=== PATIENT | female | born 1945 | race Caucasian/White ===

== ENCOUNTER → 2023-04-19 10:10 | Outpatient (REF) | payer OTHER, SELFPAY ==
[2023-04-19 12:23] LABS: ALT (SGPT) 17 U/L (0-35); AST (SGOT) 24 U/L (14-36); Albumin 3.7 g/dl (3.5-5.0); Alkaline Phosphatase 85 U/L (38-126); Blood Urea Nitrogen 22 mg/dl (7-17); Calcium 9.5 mg/dl (8.4-10.2); Carbon Dioxide 28 mmol/L (22-30); Chloride 100 mmol/L (98-107); Glucose 141 mg/dl (70-99); Potassium 3.4 mmol/L (3.5-5.1); Sodium 137 mmol/L (135-145); Total Bilirubin 1.3 mg/dl (0.2-1.3); Total Protein 6.3 g/dl (6.3-8.2); eGFR > 60.00
[2023-04-19 12:54] LABS: Free T4 1.58 ng/dl (0.78-2.19)
[2023-04-19 13:07] LABS: TSH 1.07 uIU/ml (0.47-4.68)
== END ==
LOC: HWLAB 10:10
PROVIDERS: ATTENDING PHYSICIAN Internal Medicine Endocrinology, Diabetes & Metabolism; FAMILY PHYSICIAN Family Medicine
DX: E11.9 Type 2 diabetes mellitus without complications (principal)
CPT/HCPCS: 36415; 80053; 83036; 84439; 84443

== ENCOUNTER → 2023-05-10 11:08 | Outpatient (REF) | payer OTHER, SELFPAY ==
[2023-05-10 16:23] LABS: % Basophils 0.9 % (0-2); % Eosinophils 1.8 % (0-6); % Immature Granulocytes 0.5 % (0-0.5); % Lymphocytes 13.4 % (20.5-51.1); % Monocytes 11.1 % (1.7-9.3); % Neutrophils 72.3 % (42.2-75.2); Absolute Basophils 0.1 10^3/uL (0-0.2); Absolute Eosinophils 0.1 10^3/uL (0-0.7); Absolute Lymphocytes 0.8 10^3/uL (1.2-3.4); Absolute Monocytes 0.6 10^3/uL (0.1-0.6); Hemoglobin 13.7 g/dL (12.0-16.0); Mean Corp Hgb Conc. 36.1 g/dL (33.0-37.0); Mean Corpuscular Hgb 32.9 pg (27.0-31.0); Mean Corpuscular Volume 91.3 fL (81.0-99.0); Mean Platelet Volume 10.1 fL (7.4-10.4); Nucleated Red Blood Cells % 0 %; Platelet Count 228 10^3/uL (130-400); Red Blood Cell Count 4.16 10^6/uL (4.20-5.40); Red Cell Dist. Width 12.3 % (11.5-14.5); White Blood Cell Count 5.6 10^3/uL (4.8-10.8)
[2023-05-10 16:29] LABS: ALT (SGPT) 17 U/L (0-35); AST (SGOT) 28 U/L (14-36); Albumin 3.7 g/dl (3.5-5.0); Alkaline Phosphatase 88 U/L (38-126); Blood Urea Nitrogen 16 mg/dl (7-17); Calcium 9.7 mg/dl (8.4-10.2); Carbon Dioxide 29 mmol/L (22-30); Chloride 102 mmol/L (98-107); Glucose 131 mg/dl (70-99); HDL Cholesterol 70 mg/dl; LDL Cholesterol, Calculated 29 mg/dl; Potassium 3.4 mmol/L (3.5-5.1); Sodium 135 mmol/L (135-145); Total Bilirubin 1.1 mg/dl (0.2-1.3); Total Cholesterol 135 mg/dl (50-199); Total Protein 6.3 g/dl (6.3-8.2); Triglyceride 180 mg/dl (10-149); Very Low Density Lipoprotein 36 mg/dl (0-30); eGFR > 60.00
[2023-05-10 17:29] LABS: TSH Reflex To Free T4 1.31 uIU/ml (0.47-4.68)
== END ==
LOC: HWLAB 11:08
PROVIDERS: ATTENDING PHYSICIAN Family Medicine
DX: I10 Essential (primary) hypertension (principal); E78.2 Mixed hyperlipidemia; E11.9 Type 2 diabetes mellitus without complications; E78.5 Hyperlipidemia, unspecified; E87.6 Hypokalemia; Z00.00 Encounter for general adult medical examination without abnormal findings; Z79.899 Other long term (current) drug therapy
CPT/HCPCS: 36415; 80053; 80061; 84443; 85025

== ENCOUNTER → 2023-07-09 13:43 | Outpatient (REF) | payer OTHER, SELFPAY | LOC: RAD 13:43 | PROVIDERS: ATTENDING PHYSICIAN Nurse Practitioner Adult Health | DX: I89.0 Lymphedema, not elsewhere classified (principal); Z86.718 Personal history of other venous thrombosis and embolism; R60.0 Localized edema; N60.92 Unspecified benign mammary dysplasia of left breast | CPT/HCPCS: 93970 ==

== ENCOUNTER → 2023-10-24 11:59 | Outpatient (REF) | payer OTHER, SELFPAY ==
[2023-10-24 15:53] LABS: % Basophils 0.7 % (0-2); % Eosinophils 1.2 % (0-6); % Immature Granulocytes 0.4 % (0-0.5); % Lymphocytes 16.9 % (20.5-51.1); % Monocytes 11.2 % (1.7-9.3); % Neutrophils 69.6 % (42.2-75.2); Absolute Basophils 0.1 10^3/uL (0-0.2); Absolute Eosinophils 0.1 10^3/uL (0-0.7); Absolute Lymphocytes 1.3 10^3/uL (1.2-3.4); Absolute Monocytes 0.8 10^3/uL (0.1-0.6); Absolute Neutrophils 5.2 10^3/uL (1.4-6.5); Hematocrit 35.9 % (37.0-47.0); Hemoglobin 12.9 g/dL (12.0-16.0); Mean Corp Hgb Conc. 35.9 g/dL (33.0-37.0); Mean Corpuscular Hgb 32.9 pg (27.0-31.0); Mean Corpuscular Volume 91.6 fL (81.0-99.0); Mean Platelet Volume 10.6 fL (7.4-10.4); Nucleated Red Blood Cells % 0 %; Platelet Count 313 10^3/uL (130-400); Red Blood Cell Count 3.92 10^6/uL (4.20-5.40); Red Cell Dist. Width 12.1 % (11.5-14.5); White Blood Cell Count 7.5 10^3/uL (4.8-10.8)
[2023-10-24 16:05] LABS: ALT (SGPT) 16 U/L (0-35); AST (SGOT) 24 U/L (14-36); Albumin 3.8 g/dl (3.5-5.0); Alkaline Phosphatase 102 U/L (38-126); Amylase 41 U/L (30-110); Blood Urea Nitrogen 31 mg/dl (7-17); Calcium 9.9 mg/dl (8.4-10.2); Carbon Dioxide 27 mmol/L (22-30); Chloride 96 mmol/L (98-107); Glucose 195 mg/dl (70-99); Lipase 143 U/L (23-300); Potassium 3.6 mmol/L (3.5-5.1); Sodium 137 mmol/L (135-145); Total Bilirubin 0.6 mg/dl (0.2-1.3); Total Protein 6.5 g/dl (6.3-8.2); eGFR 46.91
== END ==
LOC: HWLAB 11:59
PROVIDERS: ATTENDING PHYSICIAN Nurse Practitioner Adult Health
DX: R11.2 Nausea with vomiting, unspecified (principal)
CPT/HCPCS: 36415; 80053; 82150; 83690; 85025

== ENCOUNTER → 2023-11-08 06:28 | Day surgery (SDC) | payer OTHER, SELFPAY ==
[2023-11-08 09:47] LABS: Glucose - Point of Care 178 mg/dl (70-99)
== END ==
LOC: GI 06:28
PROVIDERS: ATTENDING PHYSICIAN Internal Medicine Gastroenterology
DX: R11.2 Nausea with vomiting, unspecified (principal); R68.81 Early satiety; R63.4 Abnormal weight loss; C54.1 Malignant neoplasm of endometrium; K44.9 Diaphragmatic hernia without obstruction or gangrene; K31.89 Other diseases of stomach and duodenum; K20.90 Esophagitis, unspecified without bleeding
CPT/HCPCS: 43239; 88305; 82962; 88342

== ENCOUNTER 2024-05-11 02:51 | Emergency (ER) | payer OTHER, SELFPAY ==
[2024-05-11 02:53] VITALS: BP 106/84
[2024-05-11 03:56] VITALS: BP 95/68; BMI 25.6
[2024-05-11 04:43] LABS: % Basophils 0.9 % (0-2); % Eosinophils 1.6 % (0-6); % Immature Granulocytes 0.5 % (0-0.5); % Lymphocytes 13.9 % (20.5-51.1); % Monocytes 12.9 % (1.7-9.3); % Neutrophils 70.2 % (42.2-75.2); Absolute Basophils 0.1 10^3/uL (0-0.2); Absolute Eosinophils 0.1 10^3/uL (0-0.7); Absolute Lymphocytes 0.9 10^3/uL (1.2-3.4); Absolute Monocytes 0.8 10^3/uL (0.1-0.6); Absolute Neutrophils 4.5 10^3/uL (1.4-6.5); Hematocrit 35.4 % (37.0-47.0); Hemoglobin 12.5 g/dL (12.0-16.0); Mean Corp Hgb Conc. 35.3 g/dL (33.0-37.0); Mean Corpuscular Hgb 33.7 pg (27.0-31.0); Mean Corpuscular Volume 95.4 fL (81.0-99.0); Nucleated Red Blood Cells % 0 %; Platelet Count 240 10^3/uL (130-400); Red Blood Cell Count 3.71 10^6/uL (4.20-5.40); Red Cell Dist. Width 12.9 % (11.5-14.5); White Blood Cell Count 6.4 10^3/uL (4.8-10.8)
[2024-05-11 05:12] LABS: ALT (SGPT) 93 U/L (0-35); AST (SGOT) 43 U/L (14-36); Albumin 3.1 g/dl (3.5-5.0); Alkaline Phosphatase 455 U/L (38-126); Blood Urea Nitrogen 34 mg/dl (7-17); Calcium 9.4 mg/dl (8.4-10.2); Carbon Dioxide 23 mmol/L (22-30); Chloride 107 mmol/L (98-107); Estimated Creatinine Clearance 39 ml/min; Glucose 147 mg/dl (70-99); Potassium 3.8 mmol/L (3.5-5.1); Sodium 138 mmol/L (135-145); Total Bilirubin 0.6 mg/dl (0.2-1.3); Total Protein 5.7 g/dl (6.3-8.2); eGFR 51.75
--- NOTE | 2024-05-11 06:01 | ED.GENMED ---
History of Present Illness
General
Chief Complaint: Skin Problem
Source: patient
Exam Limitations: none
Time Seen by Provider: 05/11/24 03:39
Nursing documentation reviewed up to this point in time: agreed with
History of Present Illness
History of Present Illness:
Pleasant 78-year-old female who presents with skin rash. Patient had a tooth extraction several weeks ago. She was started on amoxicillin for 14 days. She states that she has cancer and some of her chemotherapeutics can cause a rash. She reports
that as soon as she came off the amoxicillin she developed a rash on her extremities. She called her oncologist who wanted to extend the amoxicillin. The insurance company denied the request and patient stopped antibiotics in 14 days. Her rash
persisted. Several days later she had an infected great toe on the right. She was seen by podiatry and they removed part of the toenail and drained the abscess that had collected. She was supposed to be started on Bactrim but when she got to the
pharmacy there was no prescription waiting for her. Patient states that her right great toe became slightly erythematous yesterday and she wanted to get on an antibiotic. Patient states that the rash on her skin waxes and wanes and is typically
flat red dots. She states that it is not spreading. It is occasionally pruritic. She denies recent fevers, chills, nausea or vomiting. She follows with oncology at [facility].
Past History
Past History
ED Past Medical History: HTN and NIDDM
Social History
Tobacco: Non-smoker
Review of Systems
Review of Systems
Allergies reviewed?: Yes
All Other Systems: ROS reviewed and negative except as documented in HPI and ROS
Constitutional: Denies fever, fatigue or chills
EENT: Reports no symptoms
Respiratory: Reports no symptoms
Cardiac: Reports no symptoms
ABD/GI: Reports no symptoms
: Reports no symptoms
Musculoskeletal: Reports no symptoms
Skin: Reports rash
Neurological: Reports no symptoms
Endocrine: Reports no symptoms
Hematologic/Lymphatic: Reports no symptoms
Psychiatric: Reports no symptoms
Phy Exam
General Physical Exam
General Presentation: well appearing and mild distress
General age: appears stated age
General Skin: warm and dry
General Habitus: normal, cachetic and elderly
General Mental: alert
General Hydration: appears well hydrated
General Chronic Disability: other (Port in the right chest wall)
Cardiovascular Exam
Cardiovascular Exam: regular rate/rhythm and no edema
Course
Orders/Labs/Results
Orders:
Orders
05/11/24 04:24
Complete Blood Count/With Diff Urgent
Comprehensive Metabolic Panel Urgent
05/11/24 06:05
Sulfamethox./Trimethoprim Ds [Bactrim Ds 800 mg/160 mg] 1 tablet PO NOW STA
Abnormal Lab Results
05/11/24
04:24
RBC 3.71 L 10^6/uL
(4.20-5.40)
Hct 35.4 L %
(37.0-47.0)
MCH 33.7 H pg
(27.0-31.0)
Absolute Lymphs (auto) 0.9 L 10^3/uL
(1.2-3.4)
Absolute Monos (auto) 0.8 H 10^3/uL
(0.1-0.6)
Lymphocytes % 13.9 L %
(20.5-51.1)
Monocytes % 12.9 H %
(1.7-9.3)
BUN 34 H mg/dl
(7-17)
Creatinine 1.1 H mg/dL
(0.6-1.0)
Glucose 147 H mg/dl
(70-99)
AST 43 H U/L
(14-36)
ALT 93 H U/L
(0-35)
Alkaline Phosphatase 455 H U/L
(38-126)
Total Protein 5.7 L g/dl
(6.3-8.2)
Albumin 3.1 L g/dl
(3.5-5.0)
05/11/24 04:24
05/11/24 04:24
Vital Signs
Initial and Last Documented VS:
Initial Vital Signs
Temp Pulse Resp BP Pulse Ox
98.4 F 120 22 106/84 98
05/11/24 02:53 05/11/24 02:53 05/11/24 02:53 05/11/24 02:53 05/11/24 02:53
Last Documented Vital Signs
Temp Pulse Resp BP Pulse Ox
97.8 F 105 11 95/68 99
05/11/24 03:58 05/11/24 03:56 05/11/24 03:56 05/11/24 03:56 05/11/24 03:59
*Critical Care Note
Total Time (30-74mins, 75-104mins- exclusive of procedures): Not Applicable
ED Attending Note
-
Portions of this chart may have been created with voice recognition software.� Occasional wrong word or��sound alike� substitutions may have occurred due to the inherent limitations of voice recognition software.
Discharge Plan
Departure
Patient Disposition: Home (Routine Discharge)
Date of Disposition: 05/11/24
Time of Disposition: 06:06
Patient with high blood pressure during this ER visit?: No
Condition: Good
Discharge Problem:
Skin rash, Paronychia
Instructions: Skin Rash (DC), Paronychia ED
Prescriptions:
New
cephalexin 500 mg capsule
500 mg PO BID 7 Days Qty: 14 0RF
No Action
metoprolol succinate 50 MG tablet extended release 24 hr
50 mg PO DAILY
simvastatin 20 MG tablet
20 mg PO DAILY
methimazole 5 MG tablet
5 mg PO DAILY
aspirin 81 MG tablet,chewable
81 mg PO DAILY
valsartan-hydrochlorothiazide [Diovan HCT] 1 EACH tablet
1 ea PO DAILY
metformin 1,000 MG tablet extended release 24hr
1,000 mg PO BID
Referrals:
Shelley Villalpando MD [Family Provider] -
Interventions
Interventions:
*Risk Screen - Suicide Last Done: 05/11/24 02:53
*General Assessment Last Done: 05/11/24 03:56
*Neglect/Abuse Screening Last Done: 05/11/24 02:53
*ED- Fall Risk Assessment Last Done: 05/11/24 03:56
*ED COVID-19 Vaccine History Last Done: 05/11/24 03:56
ED-Skin Assessment Last Done: 05/11/24 03:59
Discharge Date and Time
Print Language: KYRGYZ
[2024-05-11] MEDS: KEFLEX 500 MG PO (06:13)
== END 2024-05-11 06:41 | disposition home or self-care (01) ==
LOC: EMR 02:51
PROVIDERS: EMERGENCY PHYSICIAN Student in an Organized Health Care Education/Training Program; FAMILY PHYSICIAN Family Medicine
DX: R21 Rash and other nonspecific skin eruption (principal); L03.031 Cellulitis of right toe; I10 Essential (primary) hypertension; E11.9 Type 2 diabetes mellitus without complications
CPT/HCPCS: 99283; 80053; 85025

== ENCOUNTER → 2024-05-26 10:00 | Outpatient (REF) | payer OTHER, SELFPAY ==
[2024-05-26 12:17] LABS: % Basophils 1.1 % (0-2); % Eosinophils 0.8 % (0-6); % Immature Granulocytes 0.4 % (0-0.5); % Lymphocytes 13.2 % (20.5-51.1); % Monocytes 11.9 % (1.7-9.3); % Neutrophils 72.6 % (42.2-75.2); Absolute Basophils 0.1 10^3/uL (0-0.2); Absolute Eosinophils 0.1 10^3/uL (0-0.7); Absolute Monocytes 0.9 10^3/uL (0.1-0.6); Absolute Neutrophils 5.3 10^3/uL (1.4-6.5); Hematocrit 36.2 % (37.0-47.0); Hemoglobin 12.3 g/dL (12.0-16.0); Mean Corpuscular Hgb 33.3 pg (27.0-31.0); Mean Corpuscular Volume 98.1 fL (81.0-99.0); Mean Platelet Volume 10.4 fL (7.4-10.4); Nucleated Red Blood Cells % 0 %; Platelet Count 293 10^3/uL (130-400); Red Blood Cell Count 3.69 10^6/uL (4.20-5.40); Red Cell Dist. Width 13.1 % (11.5-14.5); White Blood Cell Count 7.3 10^3/uL (4.8-10.8)
[2024-05-26 12:38] LABS: Glycohemoglobin (HgbA1c) 6.4 % (4.0-5.6)
[2024-05-26 12:40] LABS: Microalbumin, Random Urine < 0.6 mg/dl (0.6-1.7)
[2024-05-26 13:38] LABS: TSH 3.42 uIU/ml (0.47-4.68)
[2024-05-26 14:06] LABS: ALT (SGPT) 55 U/L (0-35); AST (SGOT) 61 U/L (14-36); Albumin 3.1 g/dl (3.5-5.0); Alkaline Phosphatase 275 U/L (38-126); Blood Urea Nitrogen 32 mg/dl (7-17); Calcium 8.8 mg/dl (8.4-10.2); Carbon Dioxide 24 mmol/L (22-30); Chloride 107 mmol/L (98-107); Glucose 95 mg/dl (70-99); HDL Cholesterol 56 mg/dl; LDL Cholesterol, Calculated 36 mg/dl; Potassium 4.1 mmol/L (3.5-5.1); Sodium 140 mmol/L (135-145); Total Bilirubin 0.6 mg/dl (0.2-1.3); Total Cholesterol 116 mg/dl (50-199); Total Protein 5.6 g/dl (6.3-8.2); Triglyceride 122 mg/dl (10-149); Very Low Density Lipoprotein 24 mg/dl (0-30); eGFR 51.75
== END ==
LOC: HWLAB 10:00
PROVIDERS: ATTENDING PHYSICIAN Internal Medicine Endocrinology, Diabetes & Metabolism; FAMILY PHYSICIAN Family Medicine; REFERRING PHYSICIAN Obstetrics & Gynecology Gynecologic Oncology
DX: E11.9 Type 2 diabetes mellitus without complications (principal); E05.90 Thyrotoxicosis, unspecified without thyrotoxic crisis or storm; E04.1 Nontoxic single thyroid nodule; R94.6 Abnormal results of thyroid function studies
CPT/HCPCS: 36415; 80053; 80061; 82043; 82570; 83036; 84443; 85025

== ENCOUNTER → 2024-06-05 11:06 | Outpatient (REF) | payer OTHER, SELFPAY ==
[2024-06-05 12:08] LABS: Blood Urea Nitrogen 19 mg/dl (7-17); Calcium 8.4 mg/dl (8.4-10.2); Carbon Dioxide 28 mmol/L (22-30); Chloride 107 mmol/L (98-107); Glucose 106 mg/dl (70-99); Potassium 4.3 mmol/L (3.5-5.1); Sodium 142 mmol/L (135-145); eGFR > 60.00
[2024-06-05 12:15] LABS: NT-proBNP 491 pg/ml
== END ==
LOC: REG 11:06
PROVIDERS: ATTENDING PHYSICIAN Internal Medicine Cardiovascular Disease; FAMILY PHYSICIAN Family Medicine
DX: I10 Essential (primary) hypertension (principal); R60.9 Edema, unspecified
CPT/HCPCS: 36415; 80048; 83735; 83880

== ENCOUNTER → 2024-06-23 13:00 | Outpatient (REF) | payer OTHER, SELFPAY | LOC: HWRCS 13:00 | PROVIDERS: ATTENDING PHYSICIAN Internal Medicine Cardiovascular Disease; FAMILY PHYSICIAN Family Medicine | DX: I10 Essential (primary) hypertension (principal); R60.9 Edema, unspecified | CPT/HCPCS: 93306 ==

== ENCOUNTER → 2024-07-01 11:49 | Outpatient (REF) | payer OTHER, SELFPAY ==
[2024-07-01 16:20] LABS: Blood Urea Nitrogen 30 mg/dl (7-17); Carbon Dioxide 28 mmol/L (22-30); Chloride 104 mmol/L (98-107); Glucose 126 mg/dl (70-99); NT-proBNP 518 pg/ml; Sodium 141 mmol/L (135-145); eGFR 46.62
== END ==
LOC: HWLAB 11:49
PROVIDERS: ATTENDING PHYSICIAN Internal Medicine Cardiovascular Disease; FAMILY PHYSICIAN Family Medicine
DX: I10 Essential (primary) hypertension (principal); R60.9 Edema, unspecified
CPT/HCPCS: 36415; 80048; 83880

== ENCOUNTER 2024-09-01 00:27 | Inpatient (IN) | payer OTHER, SELFPAY ==
[2024-08-31 19:28] VITALS: BP 124/80
[2024-08-31 19:47] LABS: Hematocrit 40.5 % (37.0-47.0); Hemoglobin 14.1 g/dL (12.0-16.0); Mean Corp Hgb Conc. 34.8 g/dL (33.0-37.0); Mean Corpuscular Volume 91.2 fL (81.0-99.0); Nucleated Red Blood Cells % 0 %; Platelet Count 453 10^3/uL (130-400); Red Cell Dist. Width 13.0 % (11.5-14.5)
[2024-08-31 20:05] LABS: ALT (SGPT) 23 U/L (0-35); AST (SGOT) 34 U/L (14-36); Albumin 2.9 g/dl (3.5-5.0); Alkaline Phosphatase 190 U/L (38-126); Blood Urea Nitrogen 50 mg/dl (7-17); Calcium 8.9 mg/dl (8.4-10.2); Carbon Dioxide 27 mmol/L (22-30); Chloride 99 mmol/L (98-107); Glucose 265 mg/dl (70-99); Potassium 5.1 mmol/L (3.5-5.1); Sodium 129 mmol/L (135-145); Total Protein 5.8 g/dl (6.3-8.2); eGFR 42.35
[2024-08-31 22:25] VITALS: BMI 29.3
[2024-08-31 22:26] VITALS: BP 130/85
--- NOTE | 2024-08-31 22:49 | ED.GENMED ---
History of Present Illness
General
Chief Complaint: Fall
Source: patient and family
Exam Limitations: none
Time Seen by Provider: 08/31/24 21:45
History of Present Illness
History of Present Illness:
78yoF with a history of endometrial cancer, hypertension, hyperlipidemia, type 2 diabetes, hyperthyroidism presenting with her daughter and son-in-law for evaluation of weakness. Patient reports increasing bilateral leg swelling over the past
several months. She has gained about 40 pounds since May. Her leg swelling has been worsening recently and she also feels some fluid developing in her abdomen. She also feels short of breath. She had two falls earlier today and states she
'blacked out' during one of the falls. She adamantly denies any head strike and denies headache and neck pain. Echocardiogram in June of this year showed an EF of 60-65%.
Past History
Past History
ED Past Medical History: HTN and NIDDM
Social History
Tobacco: Non-smoker
Phy Exam
Physical Exam
Physical Exam:
Chronically ill-appearing female, no acute distress
General Physical Exam
General Presentation: no apparent distress
General Skin: warm and dry
General Habitus: elderly and frail
General Mental: alert
ENT Exam
ENT Exam: normocephalic
Cardiovascular Exam
Cardiovascular Exam: regular rate/rhythm and other (Significant 3-4+ pitting edema in lower extremities)
Pulmonary Exam
Pulmonary Exam: lungs clear, no respiratory distress, no rales, chest non tender and no rhonchi
Gastrointestinal Exam
Gastrointestinal Exam: non tender, distended and other (+Fluid wave)
Neurological Exam
Neurological Exam: alert
[place] Coma Scale
Eye Opening: Spontaneous
Verbal Response: Oriented
Motor Response: Obeys Commands
GCS Total Score: 15
Skin Exam
Skin Exam: warm/dry and other (Non engorged tick noted to L thoracic region which was removed with tweezers)
Psychiatric Exam
Psychiatric Exam: normal mood/affect
Course
Orders/Labs/Results
Orders:
Orders
08/31/24 19:35
CMP [Comprehensive Metabolic Panel] Urgent
Complete Blood Count/With Diff Urgent
08/31/24 22:24
Electrocardiogram (*1) Urgent
Reason for Study: Shortness of Breath
EKG- Treatment ONCE
CR Chest - 2 Views Urgent
Comment:
Reason For Exam: SOB
CR Lumbar Spine Comp Min 4 Vw* Urgent
Comment:
Reason For Exam: fall, low back abrasion
08/31/24 23:30
NT-proBNP Urgent
Troponin I Urgent
08/31/24 23:43
Furosemide [Lasix] 40 mg IV NOW STA
09/01/24 00:00
US Periph Venous LOWER Ext Arnaud Urgent
Reason For Exam: leg swelling
09/01/24 00:17
Admit/Transfer Patient As Directed
Co-Sign Provider:
Level of Care: Inpatient admission
Assign to:: Telemetry
Physician / Group: Jenniffer
Diagnosis: heart failure
Reason for Telemetry: Subacute Heart Failure
Date to Stop Telemetry: 09/03/24
Time to Stop Telemetry: 11:00
Reason for Hospitalization: heart failure
Expected length of stay greater than two midnights?: Yes
ELOS- Estimated Length of Stay in days: 2
I certify the patient meets the requirements for IP care: Yes
PRN Pain Medication Management As Directed
May give lesser potent ordered pain med per pt: Yes
preference::
Protocol:: Medication orders for pain may be administered in a
manner that supports deferring to patient preference
when the pt is:
- Requesting an ordered lesser potent pain medication.
Least to most potent pain medications are defined
as: acetaminophen < NSAID < tramadol < opioids
(morphine, oxycodone, hydromorphone).
- Requesting a lesser dose of the same medication IF
ORDERED.
- Requesting a less intrusive route of administration
if both routes are prescribed by the provider (PO <
IV).
09/01/24 00:18
Code Status As Directed
Resuscitation Status: Full Code
09/01/24 00:32
Echo 2D MMode Color/Doppler Routine
Reason for Study: heart failure
Consult Notification Routine
Specialty to Notify: Cardiology
HF DIETARY CONSULT Routine
HF EDUCATOR CONSULT Routine
Comment:
Activity As Directed
Activity Level: With Assistance
Bedside Glucose Monitoring As Directed
Frequency: AC&HS
Intake/ Output As Directed
Frequency: Per unit guidelines
Patient Education As Directed
Type: CHF folder
Comment: give on admission. Document in Interdisciplinary Education record
Sleep Apnea Assessment by RN As Directed
Comment:
Physician Instructions:
Vital Signs As Directed
Frequency: Other
Additional Instructions:: Q12 or per unit guidelines if more frequent.
Weight As Directed
Frequency: Daily
Type of Scale: Standing Scale
Comment: Daily morning weight. If unable to stand, use balanced bed scale.
Weight As Directed
Frequency: Once
Type of Scale: Standing Scale
Comment: Upon Admission. If unable to stand, use balanced bed scale.
Pulse Ox/cont/shift [RESP] Routine
Quantity: 1
Special Instructions: Daily pulse oximetry at rest. If greater than 92% at rest also obtain pulse oximetry
while ambulating as tolerated.
Pt Eval And Treat Routine
Activity Level: With Assistance
DX Deep Vein Thrombosis Video Routine
09/01/24 Breakfast
1800 calorie (15 carb) Diabetic
At Your Request: Full Participation
Does patient need a safe tray?: No
Fluid Restriction: 1200 mL/day (40 oz)
Diabetic Diet: Sodium, 2 Gram
09/01/24 06:01
Basic Metabolic Panel IN AM
Cardiovascular Evaluation IN AM
Magnesium IN AM
Phosphorus IN AM
TSH Reflex To Free T4 IN AM
09/01/24 07:30
Insulin Aspart Corrective Low [Novolog Flexpen-Low Resistance] See Protocol SC AC
09/01/24 08:00
Atorvastatin [Lipitor] 10 mg PO DAILY
Furosemide [Lasix] 60 mg IV BID AT 0800,1600
Heparin 5,000 units SC Q8
Metformin Extended Release [Glucophage Xr Extended Release] 1,000 mg PO BID AT 0800,1700
Methimazole [Tapazole] 5 mg PO DAILY
Metoprolol Xl [Toprol Xl] 50 mg PO DAILY
09/01/24 22:00
insulin glargine [Lantus U-100 Insulin] 10 unit SC HS
09/02/24 06:00
Basic Metabolic Panel IN AM
09/03/24 06:00
Basic Metabolic Panel IN AM
09/03/24 11:00
DC Protocol for Telemetry ONCE
Abnormal Lab Results
08/31/24
19:35
WBC 11.4 H 10^3/uL
(4.8-10.8)
MCH 31.8 H pg
(27.0-31.0)
Plt Count 453 H 10^3/uL
(130-400)
Abs Immat Gran (auto) 0.1 H 10^3/uL
(0-0.05)
Absolute Neuts (auto) 9.8 H 10^3/uL
(1.4-6.5)
Absolute Lymphs (auto) 0.7 L 10^3/uL
(1.2-3.4)
Absolute Monos (auto) 0.8 H 10^3/uL
(0.1-0.6)
Neutrophils % 86.4 H %
(42.2-75.2)
Lymphocytes % 5.8 L %
(20.5-51.1)
Sodium 129 L mmol/L
(135-145)
BUN 50 H mg/dl
(7-17)
Creatinine 1.3 H mg/dL
(0.6-1.0)
Glucose 265 H mg/dl
(70-99)
Alkaline Phosphatase 190 H U/L
(38-126)
Total Protein 5.8 L g/dl
(6.3-8.2)
Albumin 2.9 L g/dl
(3.5-5.0)
08/31/24 19:35
08/31/24 19:35
Vital Signs
Initial and Last Documented VS:
Initial Vital Signs
Temp Pulse Resp BP Pulse Ox
98.3 F 111 18 124/80 97
08/31/24 19:28 08/31/24 19:28 08/31/24 19:28 08/31/24 19:28 08/31/24 19:28
Last Documented Vital Signs
Temp Pulse Resp BP Pulse Ox
98.3 F 98 24 121/81 95
08/31/24 19:28 09/01/24 09:30 09/01/24 00:01 09/01/24 09:00 09/01/24 09:30
MDM/Problems Addressed
Differential Diagnosis Includes:
78yoF here with generalized weakness and 2 falls earlier today. Hx of endometrial cancer. Also has gained 40 pounds in the past few months due to increasing leg swelling. Currently on Lasix 40mg daily. She is tachycardic with otherwise stable
vitals. She appears volume overloaded with significant leg edema. Differential diagnosis includes but is not limited to: CHF, fluid retention related to chemotherapy, failure to thrive
Initial ED plan: Labs obtained in triage which show a sodium of 129. This corrects to 132 for glucose and is likely related to hypervolemia. Will check troponin, BNP, CXR, lumbar spine x-rays, and bilateral venous duplex.
*Pulse Oximetry
SaO2: 97
Oxygen Mode of Delivery: Room air
Patient hypoxic: no (98%)
*EKG
Interpreted by ED Provider?: Yes
EKG Intrepretation Date: 08/31/24
Heart Rate: 111
Rate: tachycardiac
Rhythm: sinus
[place]: normal axis
QRS Pattern: low voltage
Ischemia: non-specific ST changes
*Critical Care Note
Total Time (30-74mins, 75-104mins- exclusive of procedures): Not Applicable
Update Note
Update Note:
BNP around 400 which appears consistent with prior labs. Troponin normal. Small effusions noted on CXR. Venous duplex negative. 40mg IV Lasix ordered and patient admitted for further management.
ED Attending Note
-
Portions of this chart may have been created with voice recognition software.� Occasional wrong word or��sound alike� substitutions may have occurred due to the inherent limitations of voice recognition software.
Discharge Plan
Departure
Patient Disposition: Admit
Date of Disposition: 09/01/24
Time of Disposition: 00:08
Presentation/result/management discussed w/ accepting MD/DO: Hospitalist
Discharge Problem:
Bilateral lower extremity edema, Ambulatory dysfunction
Interventions
Interventions:
*Risk Screen - Suicide Last Done: 08/31/24 19:28
*General Assessment Last Done: 08/31/24 22:25
*Neglect/Abuse Screening Last Done: 08/31/24 19:28
*ED- Fall Risk Assessment Last Done: 08/31/24 22:25
*ED COVID-19 Vaccine History Last Done: 08/31/24 22:25
ED-Musculoskeletal Assessment Last Done: 08/31/24 22:25
ED- Neurological Assessment Last Done: 08/31/24 22:25
ED-Skin Assessment Last Done: 08/31/24 22:25
[2024-08-31 23:00] VITALS: BP 125/76
[2024-09-01] VITALS (20 sets, daily range): BP systolic 117–150; BP diastolic 75–94; BMI 29.3
[2024-09-01] MEDS: LASIX 40 MG IV (00:02)
[2024-09-01 00:03] LABS: Troponin I < 0.012 ng/ml
--- NOTE | 2024-09-01 00:22 | HPS.HSE ---
Family Physician
-
Family Physician: Shelley Villalpando
Chief Complaint
-
Weakness
History of Present Illness
This is a 78-year-old female with past medical history of insulin-dependent diabetes, hyperlipidemia hypertension and a history of endometrial cancer, hypothyroidism presenting to the emergency department with increasing lower extremity swelling and
weakness. Patient actually had 2 falls today which point after coming to the emergency department.
Patient reports that she is currently under treatment for endometrial cancer and is getting infusions as well as lenvatinib. Lapatinib is known to cause fluid retention and she has been having increasing lower extremity edema and weight gain.
Patient was placed on Lasix and has been using intermittent Lasix for weight gain. Despite this she says she has continued to have orthopnea. She reports that at night she gets short of breath and feels as though somebody is sitting on her chest.
He has increasing lower extremity edema and 40 pound weight gain. He was seen in February by cardiology in that time felt to be in good state of health without any CHF exacerbation or coronary artery disease. She was to be seen again in 6 months.
Despite some degree of cachexia she is still gaining weight and has been having dyspnea on exertion as well.
Patient reported that due to increasing weight gain levantinib has been discontinued but it takes several weeks for the medication to be dissipated from the body.
Patient reported that she has gained about 40 pounds over the last 2 to 3 months. He has increasing bilateral lower extremity swelling. She does report that she takes 40 mg of Lasix daily. She denies having any chest pain. She denies orthopnea
or PND. She denies palpitations lightheadedness or dizziness. She denies any cough fevers or chills.
In the emergency department she was satting 99% on room air. Up to pressure was 150/90 with a pulse rate of 97 and a temperature of 98.3. ECG shows sinus tachycardia at a rate of 111. Trope was negative. BNP was 416.
Chest x-ray shows pleural effusions. CBC shows a white count of 11.4 otherwise unremarkable. Sodium was 129. Rest of her electrolytes were in the normal range. BUN was 50 with a creatinine of 1.3.
Medical History
Past Medical History
Past Medical History: Reports Cancer (Uterine cancer, breast cancer), HTN, Hypercholesterolemia, Hyperthyroidism, IDDM, Psychiatric (Anxiety) and Other (Hypothyroid status post radiation, sleep apnea, nephrolithiasis)
Past Surgical History: Reports Cholecystectomy, Gynocological (Status post hysterectomy, salpingo-oophorectomy), Orthopedic (Right knee arthroscopic meniscus repair) and Other
Social History
Tobacco: Non-smoker
Alcohol: None
Drug: None
Family History
Family History: Not pertinent
Allergies / Home Medications
Allergies reflects when Allergies were last updated in [employer].
Home Medications with original date entered in [employer]
Allergy/Medication List:
Allergies
Allergy/AdvReac Type Severity Reaction Status Date / Time
adhesive tape Allergy Unknown Verified 08/31/24 19:27
lactose Allergy Unknown Verified 08/31/24 19:27
Home Medications
metformin 1,000 mg tablet,extended release 24hr (osmotic) 1,000 mg PO BID 11/14/14
methimazole 5 mg tablet 5 mg PO DAILY 11/14/14
metoprolol succinate 50 mg tablet,extended release 24 hr 50 mg PO DAILY 11/14/14
simvastatin 20 mg tablet 20 mg PO DAILY 11/14/14
insulin glargine 100 unit/mL subcutaneous solution (Lantus U-100 Insulin) 18 unit SC HS 08/31/24
Review of Systems
-
Constitutional: Reports No Symptoms
EENT: Reports No Symptoms
Respiratory: Reports No Symptoms
Cardiac: Reports No Symptoms
Abdomen/GI: Reports No Symptoms
: Reports No Symptoms
Musculoskeletal: Reports Edema
Skin: Reports No Symptoms
Neurological: Reports Weakness
Endocrine: Reports No Symptoms
Hematologic/Lymphatic: Reports No Symptoms
Psych: Reports No Symptoms
Physical Exam
Vital Signs
Vital Signs
Temp Pulse Resp BP Pulse Ox
98.3 F 97 24 150/93 99
08/31/24 19:28 09/01/24 00:02 09/01/24 00:01 09/01/24 00:02 09/01/24 00:01
Physical Exam
General: Well Developed, Well Nourished and No Apparent Distress
HEENT: NormoCephalic, Moist mucous membranes and Atraumatic
Respiratory: Clear
Cardiac: S1/S2 and Regular Rhythm; No Murmur or Rub
GI: Soft, Non Tender, Non Distended and Normal Bowel Sounds; No Organomegaly
Rectal: Deferred by Provider
Musculoskeletal: No Clubbing, No Cyanosis, Edema, Left Lower Extremity and Edema, Right Lower Extremity
Skin: No Rash
Neuro: Nonfocal/grossly intact
Laboratory Results
-
08/31/24 19:35
08/31/24 19:35
Laboratory Results
Total Bilirubin 0.6 mg/dl (0.2-1.3) 08/31/24 19:35
AST 34 U/L (14-36) 08/31/24 19:35
ALT 23 U/L (0-35) 08/31/24 19:35
Alkaline Phosphatase 190 U/L (38-126) H 08/31/24 19:35
Troponin I < 0.012 ng/ml 08/31/24 23:30
Data Reviewed
-
Diagnostic Radiology: Image Personally Visualized and interpreted
Medical Tests (Nuc Med, Echo, EKG etc): Image Personally Visualized and interpreted
Lab Data: Labs Reviewed by me
Old Records: Reviewed
Impression/Plan
-
IMPRESSION:
Is a 78-year-old female with past medical history of uterine cancer, breast cancer, insulin-dependent diabetes, hypothyroid hypertension and hyperlipidemia who presents to the emergency department with weakness and worsening bilateral lower
extremity edema with 40 pound weight gain recently. Chest x-ray with pleural effusion. ECG is nonischemic, BNP is equivocal at over 400. CBC unremarkable. She has a mild elevation in BUN and creatinine and a sodium is 129 from a baseline in the
130s. Picture consistent with fluid overload and volume retention possibly secondary to congestive heart failure. Cannot rule out proximal DVT.
PLAN:
Volume overload - CHF possibly due to fluid retention from chemo vs cardiomyopathy. BNP is unremarkable. No ischemia on ECG.
-Admit to telemetry
-Start diuretics Lasix Lasix 60 mg IV twice daily
-Fluid restriction, salt restriction
-Strict ins and outs
-Daily weights
-Check TSH
-Echocardiogram
-Continue metoprolol succinate, off ARB
- Cardiology consultation
Peripheral edema -suspect CHF versus DVT
- Bilateral lower extremity ultrasound
Hyponatremia -hypervolemic hyponatremia
- Fluid restriction to 40 ounces daily
- Diuresis as above
- Repeat labs in a.m.
- Monitor for now, will consult nephrology if sodium drops further
Diabetes
- Continue Lantus 10 units at bedtime
- Aspart sliding scale
- Continue metformin for now
DVT prophylaxis -heparin subcu
CODE STATUS�full code
--- NOTE | 2024-09-01 02:29 | DOWNTIME ---
There was a [employer] Client [employer]ist Downtime on 09/01/2024 from 0100 to 09/01/2024 at 0220. Downtime documentation of patient's care, including medication administrations, has been reconciled in the electronic record per guidelines. Refer to the
patient's paper chart under the miscellaneous tab to see printed paper medication records and downtime forms.
[2024-09-01] MEDS: ATIVAN 0.5 MG PO (03:50)
[2024-09-01 06:50] LABS: Blood Urea Nitrogen 50 mg/dl (7-17); Calcium 8.5 mg/dl (8.4-10.2); Carbon Dioxide 26 mmol/L (22-30); Chloride 99 mmol/L (98-107); Estimated Creatinine Clearance 39 ml/min; Glucose 252 mg/dl (70-99); HDL Cholesterol 52 mg/dl; LDL Cholesterol, Calculated 43 mg/dl; Magnesium 1.9 mg/dl (1.6-2.3); Potassium 4.2 mmol/L (3.5-5.1); Sodium 131 mmol/L (135-145); Very Low Density Lipoprotein 27 mg/dl (0-30); eGFR 42.35
[2024-09-01] MEDS: TOPROL XL 50 MG PO (07:45)
[2024-09-01] MEDS: LIPITOR 10 MG PO (07:46)
[2024-09-01 07:47] LABS: Glucose - Point of Care 244 mg/dl (70-99)
[2024-09-01] MEDS: LASIX 60 MG IV ×2 (07:47→16:30)
[2024-09-01] MEDS: HEPARIN 5000 UNITS SC ×3 (07:47→23:40)
[2024-09-01] MEDS: TAPAZOLE 5 MG PO (08:11)
[2024-09-01] MEDS: GLUCOPHAGE XR EXTENDED RELEASE 1000 MG PO ×2 (08:11→16:28)
--- NOTE | 2024-09-01 09:13 | W.PN.HOSP.TC ---
Addendum entered and electronically signed by Nancy Schmitt MD 09/01/24 13:51:
Endometrial CA
-currently under treatment, receiving IV Lenvatinib infusions
Original Note:
Today's Communication/Plan
-
diuresis
echo
Cardiology consult
Assessment / Plan
Assessment / Plan
This is a 78-year-old female with past medical history of insulin-dependent diabetes, hyperlipidemia hypertension and a history of endometrial cancer, hypothyroidism presenting to the emergency department with increasing lower extremity swelling and
weakness.
CXR 08/31
IMPRESSION:
Small patchy opacity within the right middle lobe most likely representing subsegmental atelectasis. Pneumonia cannot be excluded.
Small bilateral pleural effusions.
LUMBAR SPINE X-RAY 08/31
IMPRESSION:
Degenerative changes with slight progression.
No findings to suggest lumbar vertebral compression fracture.
LE US 09/01
IMPRESSION: No evidence of deep venous thrombosis of the lower extremities bilaterally.
No interval change.
PLAN:
Volume overload - CHF possibly due to fluid retention from chemo vs cardiomyopathy. BNP is unremarkable. No ischemia on ECG.
-Admit to telemetry
-continue Lasix 60 mg IV twice daily - monitor response
-Fluid restriction, salt restriction
-Strict ins and outs
-Daily weights
-Echocardiogram
-Continue metoprolol succinate, off ARB
- Cardiology consultation
Peripheral edema -suspect CHF versus DVT
- Bilateral lower extremity ultrasound
Hyperthyroidism
-PRODUCTION ESTIMATOR Methimazole - will need repeat of TFT's after acute illness
Hyponatremia -hypervolemic hyponatremia
- Fluid restriction to 40 ounces daily
- Diuresis as above
- Na mildly improved this AM
- Monitor for now, will consult nephrology if sodium drops further
Diabetes
- Continue Lantus 10 units at bedtime
- Aspart sliding scale
- Continue metformin for now
DVT prophylaxis -heparin subcu
CODE STATUS�full code
Anticipated Discharge: > 48 hours
Subjective/Interval History
-
Date of Service: September 01, 2024
she reports urinating a lot overnight with some improvement in LE swelling
Objective Data
-
Labs:
Laboratory Results
09/01/24
06:01
Sodium 131 L
Potassium 4.2
Chloride 99
Carbon Dioxide 26
BUN 50 H
Creatinine 1.3 H
Glucose 252 H
Calcium 8.5
Vital Signs:
Vital Signs
Temp Pulse Resp BP Pulse Ox
98.3 F 101 24 134/87 98
08/31/24 19:28 09/01/24 07:47 09/01/24 00:01 09/01/24 07:47 09/01/24 07:00
Review of Systems
-
History Source: Patient
All other systems: Reviewed and negative
Physical Exam
-
General: No Apparent Distress
HEENT: PERRLA
Respiratory: Clear to Auscultation
Cardiac: S1/S2 and Tachycardic
GI: Soft and Nontender
Musculoskeletal: Edema, Right Lower Extrem and Edema, Left Lower Extrem
Skin: Warm and Dry; Negative Rash
Neuro: AO x 3
Psych: Calm
Data Reviewed
-
Diagnostic Radiology: Report Reviewed by me
Labs: Labs Reviewed by me
[2024-09-01] MEDS: NOVOLOG FLEXPEN-LOW RESISTANCE 300 UNITS SC (09:32)
[2024-09-01 09:33] LABS: Glucose - Point of Care 237 mg/dl (70-99)
--- NOTE | 2024-09-01 11:56 | CON.CAR ---
Addendum entered and electronically signed by Celio Patel MD 09/01/24 15:36:
Attending addendum: Patient seen and examined. PA note reviewed and findings independently confirmed by me. I met with Ms. Stout and her daughter. Briefly, this is a 78-year-old female with a past medical history notable for endometrial cancer
treated with carboplatinum, paclitaxel and Keytruda. Most recently on lenvatinib and Keytruda and now on Keytruda only. Over the past several weeks she has experienced a progressive decline in functional capacity with increased LE edema. Her last
echocardiogram a few months ago was notable for preserved LVEF. He has a history of lymphedema and chronic LE edema but symptoms recently so bad that she stopped using her compression stockings because she was having difficulty getting legs
wrapped. She presents now with progressive edema.
Physical Exam:
GEN: Very thin frail appearing 78 y/o female with LE anasarca. She is AAO x 3. No acute distress and is pleasant and conversant
HEENT: NC/AT, sclera are anicteric, hearing and nares are normal.
NECK: Supple. Normal JVP
LUNGS: Mildly diminished at both bases but good air movement and no wheezing.
CV: Regular rate and rhythm. Normal S1/S2. No S3, No S4. Murmur: None
ABD : Soft, NT, Bowel sounds are present.
EXT: Anasarca LE bilaterally 4+
Echo: Preserved LVEF. No regional WMA.
RECOMMENDATIONS:
-Suspect lymphedema will improve with tubigrips and diuretics
-seems to be failing at home and would likely benefit from higher level of assistance. She has not eaten for 4 days.
-Will follow
NEURO: No focal neurologic deficits
Original Note:
Consultation
Consultation Request
Date/Time Consultation Requested: 09/01/2024 at 0049
Date/Time Consultation Performed: 09/01/2024 at 1200
Requesting Provider: Dr. Nancy Schmitt
Performing Provider: Dr. Salcedo
Reason for Consultation: Acute HF
Medical History
-
History of Present Illness:
Patient came to the ER late yesterday with increased LE edema and weight gain and was admitted with multifactorial volume overload, cardiology is now consulted. Patient was seen in the office on 07/02/2024 and that time had significant LE edema
which thought to be multifactorial including her intra-abdominal processes related to previous cancer treatment and radiation, hypoalbuminemia, lymphedema and chronic HFpEF. Patient did not appear to be in acute HF and no changes were made to her
usual diuretic regimen of Lasix 40 mg daily. Patient comes to the ER now believing that her weight is up about 40 pounds over the last couple of months. Patient denies any chest pain. Overall BLEVINS, but no specific orthopnea. Tremendous increase
in LE edema, but no evidence of DVT on U/S. Patient also reporting intermittent episodes of pain/pressure in her chest radiating up from her epigastrium into her neck, there was some thought that this may have been related to Lenvima as she also
had increased N/V. Outpatient oncologist stopped Lenvima and plan is to reassess in 6 weeks. In the meantime patient remains on her usual Keytruda every 3 week regimen. Patient also with episode of syncope x 2 described as standing from a seated
position feeling lightheaded and then near syncope. No fall or injury.
PMH:hronic LE edema and lymphedema
Hypoalbuminemia
Hyperthyroidism
DM 2
h/o serous endometrial cancer
Initially part of the study of carboplatin/paclitaxel Taxol +/- Keytruda therapy, then on Lenvima and Keytruda and now on Keytruda alone
Previous radiation therapy to the perihepatic and supraclavicular areas for positive lymph nodes
DM2
Inappropriate sinus tachycardia
h/o splenic artery aneurysm
h/o mesenteric venous thrombosis
Past Medical History
Past Medical History: Other (In HPI)
Past Surgical History: Cholecystectomy, Gynecological (YONG/BSO and lymph node dissection 08/2015) and Orthopedic
Social History
Tobacco: Non-Smoker
Alcohol: None
Drug: None
Personal:
Living: Alone
Family History
Family History: CAD
Allergies / Home Medications
Allergy/AdvReac Type Severity Reaction Status Date / Time
adhesive tape Allergy Unknown Verified 08/31/24 19:27
lactose Allergy Unknown Verified 08/31/24 19:27
�Medication �Instructions �Recorded �Confirmed �Type
methimazole 5 mg tablet 5 mg PO DAILY 11/14/14 09/01/24 History
metoprolol succinate 50 mg 50 mg PO DAILY 11/14/14 09/01/24 History
tablet,extended release 24 hr
simvastatin 20 mg tablet 20 mg PO DAILY 11/14/14 09/01/24 History
insulin glargine 100 unit/mL 18 unit SC HS 08/31/24 09/01/24 History
subcutaneous solution (Lantus
U-100 Insulin)
metformin 1,000 mg tablet 1,000 mg PO BID 09/01/24 09/01/24 History
Review of Systems
-
History Source: Patient and Family (Daughter sitting bedside helping with HPI)
All other systems: Negative unless noted
Physical Exam
Vital Signs
Temp Pulse Resp BP Pulse Ox
98.3 F 95 24 122/76 95
08/31/24 19:28 09/01/24 11:00 09/01/24 00:01 09/01/24 11:00 09/01/24 09:30
GEN: NAD. AAOx3
HEENT: EOMI, MMM
LUNGS: RA. No audible wheeze
CV: SR on tele. Reg, S1/S2, no murmur
ABD: soft, BS+, NT, ND
EXT: +3 pitting B/L LE edema to the thighs.
NEURO: Gross non-focal
SKIN: No rash
Lab Results
08/31/24 19:35
09/01/24 06:01
Troponin I < 0.012 ng/ml 08/31/24 23:30
Hhb-Y-Ldmziomfvxq Pept 416 pg/ml 08/31/24 23:30
Impression / Plan
-
PCP: Dr. Villalpando
Card: Dr. Alena Montalvo
Impression:
Admitted with multifactorial volume overload and syncope 08/31/2024
Acute HFpEF
Acute on chronic LE edema and lymphedema
Hypoalbuminemia
Syncope, likely orthostasis
Hyperthyroidism
Hyponatremia
DM 2
h/o serous endometrial cancer
Initially part of the study of carboplatin/paclitaxel Taxol +/- Keytruda therapy, then on Lenvima and Keytruda and now on Keytruda alone
Previous radiation therapy to the perihepatic and supraclavicular areas for positive lymph nodes
DM2
Inappropriate sinus tachycardia
h/o splenic artery aneurysm
h/o mesenteric venous thrombosis
Echo 06/23/2024: EF 60 to 65%, normal RV size and function, mild MR
Echo 09/01/2024: EF 60 to 65%, no WMA, normal RV size and function, mild MR
Plan:
Patient came to the ER late yesterday with increased LE edema and weight gain and was admitted with multifactorial volume overload, cardiology is now consulted. Patient was seen in the office on 07/02/2024 and that time had significant LE edema
which thought to be multifactorial including her intra-abdominal processes related to previous cancer treatment and radiation, hypoalbuminemia, lymphedema and chronic HFpEF. Patient did not appear to be in acute HF and no changes were made to her
usual diuretic regimen of Lasix 40 mg daily. Patient comes to the ER now believing that her weight is up about 40 pounds over the last couple of months. Patient denies any chest pain. Overall BLEVINS, but no specific orthopnea. Tremendous increase
in LE edema, but no evidence of DVT on U/S. Patient also reporting intermittent episodes of pain/pressure in her chest radiating up from her epigastrium into her neck, there was some thought that this may have been related to Lenvima as she also
had increased N/V. Outpatient oncologist stopped Lenvima and plan is to reassess in 6 weeks. In the meantime patient remains on her usual Keytruda every 3 week regimen. Patient also with episode of syncope x 2 described as standing from a seated
position feeling lightheaded and then near syncope. No fall or injury.
-ECG reviewed by me shows sinus tachycardia without acute ST or T wave changes.
-Patient with acute on chronic multifactorial volume overload and increased edema. Patient reports increased urine output with Lasix 40 mg IV x 1 last night and then 60 mg IV BID ordered since admission. Patient was taking Lasix 40 mg PO daily
prior to admission.
-Repeat echo from today noted above, overall EF is stable without WMA or change in RV size/function
-Again, suspect this is multifactorial including hypoalbuminemia and chronic lymphedema with previous endometrial cancer treatment
-Reviewed with patient ongoing attempts to increase protein in her diet. Patient largely NPO for the last 4 days likely due to extrinsic compression from intra-abdominal fluid, but as patient diuresis hopefully appetite will improve.
-Order for B/L LE Tubigrip's placed by me, no latex allergy and there is no evidence of DVT on U/S
-Near syncope sounds orthostatic and likely related to poor p.o. intake. Increase in p.o. intake as noted above, will also add hold parameters to her usual dosing of Toprol XL 50 mg BID
[2024-09-01 12:27] LABS: Glucose - Point of Care 262 mg/dl (70-99)
[2024-09-01] MEDS: NOVOLOG FLEXPEN-LOW RESISTANCE 3 UNITS SC ×2 (12:30→16:44)
--- NOTE | 2024-09-01 13:06 | CM ---
CM met with pt bedside
Pt resides alone in a bi-level house
She has sold her home and will moving to [place] [facility] in [place] on 09/07/24
Pt noted indep at baseline drives+
utilizing a SPC currently as home filled with moving boxes, has a WW for use as needed
Pt attending outpt infusion for CA tx at [facility] in [place]
Pt has two dtrs that lives out of [facility] [place] [facility]
She noted no local friends or family for assistance if needed
Pt received her DM supplies and insulin through local [facility]
No POAs
PCP- Shelley Villalpando
Rx- DanyBrian
PT eval pending
Discharge Disposition- home, follow for needs
[2024-09-01 16:24] LABS: Glucose - Point of Care 256 mg/dl (70-99)
[2024-09-01] MEDS: COMPAZINE 5 MG IV (19:22)
[2024-09-01] MEDS: TUMS CHEWABLE TABLET 200 MG PO (20:33)
[2024-09-01 21:28] LABS: Glucose - Point of Care 256 mg/dl (70-99)
[2024-09-01] MEDS: LANTUS 0.12 UNITS SC (21:37)
[2024-09-01] MEDS: SENOKOT-S 1 TABLET PO (23:40)
[2024-09-02] VITALS (7 sets, daily range): BP systolic 102–165; BP diastolic 68–86; PULSE 100; O2SAT 96; BMI 28.1
[2024-09-02 06:49] LABS: Blood Urea Nitrogen 52 mg/dl (7-17); Calcium 8.6 mg/dl (8.4-10.2); Carbon Dioxide 25 mmol/L (22-30); Chloride 100 mmol/L (98-107); Estimated Creatinine Clearance 36 ml/min; Glucose 216 mg/dl (70-99); Magnesium 1.8 mg/dl (1.6-2.3); Potassium 4.2 mmol/L (3.5-5.1); Sodium 130 mmol/L (135-145); eGFR 38.75
[2024-09-02 07:18] LABS: Glucose - Point of Care 189 mg/dl (70-99)
--- NOTE | 2024-09-02 07:26 | PTCARENOTE ---
pt voiding 25-50ml at a time. bladder scan 677ml. pt straight cath for only 25ml. attempted to adjust cath and patient position in bed. no change in urine out. Informed SOFTWARE SUPPORT TECHNICIAN Devin
[2024-09-02] MEDS: NOVOLOG FLEXPEN-LOW RESISTANCE 1 UNITS SC ×3 (09:09→17:22)
[2024-09-02] MEDS: GLUCOPHAGE XR EXTENDED RELEASE 1000 MG PO ×2 (09:10→16:12)
[2024-09-02] MEDS: LIPITOR 10 MG PO (09:10)
[2024-09-02] MEDS: TAPAZOLE 5 MG PO (09:10)
[2024-09-02] MEDS: TOPROL XL 50 MG PO (09:11)
[2024-09-02] MEDS: LASIX 60 MG IV ×2 (09:11→16:09)
[2024-09-02] MEDS: HEPARIN 5000 UNITS SC ×2 (09:13→16:10)
--- NOTE | 2024-09-02 10:41 | W.PN.HOSP.TC ---
Addendum entered and electronically signed by Carl Eddy DO 09/02/24 12:05:
Severe protein/calorie malnutrition of chronic illness
Original Note:
Today's Communication/Plan
-
Continue diuresis
Tubigrip's
PT/OT
Assessment / Plan
Assessment / Plan
Gen-AAOx3, NAD
HEENT-NC, AT, anicteric, clear oral mm
Neck-supple
CV-reg, no M, +S1/S2
Lungs-clear B/L
Abd-soft, NT, ND
Ext-diffuse bilateral lower extremity edema up to thighs
Musculoskeletal-no cyanosis, clubbing
Skin-warm and dry
Neuro-grossly non-focal
Psych-calm, cooperative
Anasarca -primarily driven by severe lower extremity lymphedema, malignancy related. No true evidence of congestive heart failure.
Continue IV Lasix, leg elevation. Tubigrip's if she can tolerate.
Echocardiogram shows LVEF 60 to 65%, no regional wall motion abnormalities. No significant change compared to echocardiogram from June 2024.
Lower extremity ultrasound negative for DVT.
CKD 3A -monitor renal function closely on Lasix, creatinine 1.4 today.
Hyperthyroidism
-CARE TRAINER Methimazole - will need repeat of TFT's after acute illness
Hyponatremia -hypervolemic hyponatremia
- Fluid restriction to 40 ounces daily
- Diuresis as above
- Sodium stable at 130.
DM2 with hyperglycemia -glucose 216 this morning. Hemoglobin A1c 6.4% in May. At home she is on Lantus 18 units at bedtime, metformin 1000 mg twice daily.
- In the hospital, she is on Lantus 12 units at bedtime, will increase to 15 units starting tonight.
- Aspart sliding scale
- Continue metformin for now
Metastatic endometrial cancer -oncologist is located in [place].
History of breast cancer
Hyperlipidemia -simvastatin.
DVT prophylaxis -heparin subcu
Full code
Dispo -she lives in a senior facility. Awaiting PT/OT input.
Anticipated Discharge: > 48 hours
Subjective/Interval History
-
Date of Service: September 02, 2024
Patient seen and examined. No complaints.
Objective Data
-
Labs:
Laboratory Results
09/02/24
05:50
Sodium 130 L
Potassium 4.2
Chloride 100
Carbon Dioxide 25
BUN 52 H
Creatinine 1.4 H
Glucose 216 H
Calcium 8.6
Vital Signs:
Vital Signs
Temp Pulse Resp BP Pulse Ox
97.5 F 105 20 122/81 95
09/02/24 07:27 09/02/24 07:27 09/02/24 07:27 09/02/24 07:27 09/02/24 07:27
I&O
09/01/24 09/02/24 09/03/24
06:59 06:59 06:59
Intake Total 570 / 570
Output Total 175 / 175
Balance 395 / 395
Review of Systems
-
History Source: Patient
All other systems: Reviewed and negative
--- NOTE | 2024-09-02 11:20 | PN.CDI ---
CDI
- -
CDI:
Physician Documentation Request
Admit Date: 09/01/24 00:27
Dear Doctor Surjit,
Clinical Indicators:
Patient admitted with anarca; currently undergoing treatment for metastatic endometrial cancer.
09/01 note/assessment: -Subcutaneous Loss Orbital: Severe Muscle Loss Clavicle: Severe
-'Patient meets AND and GUANAKITOEN criteria for severe protein calorie malnutrition of
chronic illness due to severe fat and muscle loss in her orbital and clavicle regions.
Based on the above information and your assessment, which of the following most accurately represents the patient's nutritional status?
Severe Protein Calorie Malnutrition
Other (please specify)
[place] Criteria ([facility] Hospitalist 2017)
2 or more criteria must be present for either
non severe or severe malnutrition
Note that the criteria differs related to the
presence of an acute or chronic illness
Acute Illness Chronic Illness
Energy Intake Non Severe: <75% for >7 days Non Severe: <75% for >1 month
Severe: <50% for >5 days Severe: <75% for >1 month
Weight Loss Non Severe: 1-2% over 1 week Non Severe: 5% over 1 month
5% over 1 month 7.5% over 3 months
7.5% over 3 months 10% over 6 months
1 year N/A 20% over 1 year
Severe: >2% over 1 week Severe: >5% over 1 month
>5% over 1 month >7.5% over 3 months
>7.5% over 3 months >10% over 6 months
1 year N/A >20% over 1 year
Body Fat Non Severe: Mild Decrease Non Severe: Mild Loss
Severe: Moderate Decrease Severe: Severe Loss
Muscle Mass Non Severe: Mild Decrease Non Severe: Mild Loss
Severe: Moderate Decrease Severe: Severe Loss
Fluid Accumulation Non Severe: Mild Accumulation Non Severe: Mild Accumulation
Severe: Moderate to severe Severe: Moderate to severe
accumulation accumulation
Reduced Satellite Dish Technician Strength Non Severe: N/A Non Severe: N/A
Severe: Measurably reduced Severe: Measurably reduced
Additional criteria that can be used to Determine if Mild or Moderate Malnutrition (Merck Manual 2018)
Mild Moderate Severe
Albumin gm/dl <3.0 gm/dl <2.5 gm/dl <2.0 gm/dl
Pre Albumin mg/dl <15 gm/dl <10 mg/dl <5.0 mg/dl
BMI <18.5 <17 <16
Use of terms such as suspected, likely, concern for, or probable (associated with a specific diagnosis that is being evaluated, monitored, or treated as if it exists) are acceptable and can be coded in the inpatient setting, when documented at the
time of discharge.
Thank you,
RACHEL Boateng RN
CDI Specialist
available via tiger text
Please use your independent medical judgment in providing your response.
[2024-09-02 12:00] LABS: Glucose - Point of Care 182 mg/dl (70-99)
--- NOTE | 2024-09-02 14:48 | W.PN.CARDCBS ---
Addendum entered and electronically signed by Daniel Hansen MD 09/02/24 15:41:
I saw and examined the patient.
The Steam Engineer's note was reviewed and I agree with the note.
Comment:
GEN: No distress, awake, Ox3
HEENT: supple, anicteric, mmm
LUNGS: CTA, no wheezes/rales
CV: Reg, S1/S2, 1/6 syst LSB, no murmur
ABD: soft, BS+, NT/mild distended
EXT: ++ edema
NEURO: Gross non-focal
SKIN: No rash
Plan:
Her weight is down but she remains edematous. Her edema is multifactorial but there is likely component of heart failure with preserved ejection fraction.
Continue Lasix 60 mg IV twice daily. Creatinine at 1.4 and continue to follow.
Continue compression therapy for her lymphedema.
She is also hyponatremic and continue to follow sodium at 130.
Continue metoprolol for sinus tachycardia.
Original Note:
Today's Communication / Plan
-
Continue Lasix 60 mg IV BID
B/L LE Tubigrip's should be continued
Impression / Plan
-
PCP: Dr. Villalpando
Card: Dr. Alena Montalvo
Impression:
Admitted with multifactorial volume overload and syncope 08/31/2024
Acute HFpEF
Acute on chronic LE edema and lymphedema
Hypoalbuminemia
Syncope, likely orthostasis
Hyperthyroidism
Hyponatremia
DM 2
h/o serous endometrial cancer
Initially part of the study of carboplatin/paclitaxel Taxol +/- Keytruda therapy, then on Lenvima and Keytruda and now on Keytruda alone
Previous radiation therapy to the perihepatic and supraclavicular areas for positive lymph nodes
DM2
Inappropriate sinus tachycardia
h/o splenic artery aneurysm
h/o mesenteric venous thrombosis
Echo 06/23/2024: EF 60 to 65%, normal RV size and function, mild MR
Echo 09/01/2024: EF 60 to 65%, no WMA, normal RV size and function, mild MR
Plan:
-Weight is down 7 lbs overnight with Lasix 60 mg IV BID diuresis. Patient was taking Lasix 40 mg PO daily prior to admission.
-Cre stable at 1.4 on labs reviewed by me 09/02/2024
-Repeat echo from 09/01/2024 noted above, overall EF is stable without WMA or change in RV size/function
-Suspect LE edema is multifactorial including hypoalbuminemia and chronic lymphedema with previous endometrial cancer treatment
-Reviewed with patient ongoing attempts to increase protein in her diet. Patient largely NPO for the last 4 days likely due to extrinsic compression from intra-abdominal fluid, but as patient diuresis hopefully appetite will improve.
-B/L LE Tubigrips ordered by me, no latex allergy and there is no evidence of DVT on U/S
-Near syncope sounds orthostatic and likely related to poor PO intake. Added hold parameters to her usual dosing of Toprol XL 50 mg BID
HPI: Patient came to the ER late yesterday with increased LE edema and weight gain and was admitted with multifactorial volume overload, cardiology is now consulted. Patient was seen in the office on 07/02/2024 and that time had significant LE edema
which thought to be multifactorial including her intra-abdominal processes related to previous cancer treatment and radiation, hypoalbuminemia, lymphedema and chronic HFpEF. Patient did not appear to be in acute HF and no changes were made to her
usual diuretic regimen of Lasix 40 mg daily. Patient comes to the ER now believing that her weight is up about 40 pounds over the last couple of months. Patient denies any chest pain. Overall BLEVINS, but no specific orthopnea. Tremendous increase
in LE edema, but no evidence of DVT on U/S. Patient also reporting intermittent episodes of pain/pressure in her chest radiating up from her epigastrium into her neck, there was some thought that this may have been related to Lenvima as she also
had increased N/V. Outpatient oncologist stopped Lenvima and plan is to reassess in 6 weeks. In the meantime patient remains on her usual Keytruda every 3 week regimen. Patient also with episode of syncope x 2 described as standing from a seated
position feeling lightheaded and then near syncope. No fall or injury.
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
Subjective
Date of Service: September 02, 2024
Minimal improvement in fatigue, thinks LE edema is a bit better
Objective
Labs:
08/31/24 19:35
09/02/24 05:50
Labs
Hgb 14.1 g/dL (12.0-16.0) 08/31/24 19:35
Hct 40.5 % (37.0-47.0) 08/31/24 19:35
Plt Count 453 10^3/uL (130-400) H 08/31/24 19:35
Sodium 130 mmol/L (135-145) L 09/02/24 05:50
Potassium 4.2 mmol/L (3.5-5.1) 09/02/24 05:50
BUN 52 mg/dl (7-17) H 09/02/24 05:50
Creatinine 1.4 mg/dL (0.6-1.0) H 09/02/24 05:50
Glucose 216 mg/dl (70-99) H 09/02/24 05:50
Troponins
08/31/24
23:30
Troponin I < 0.012
Vital Signs and I&O:
Vital Signs
Temp Pulse Resp BP Pulse Ox
97.5 F 100 20 102/77 97
09/02/24 11:31 09/02/24 11:31 09/02/24 11:31 09/02/24 11:31 09/02/24 11:31
Vital Signs
Temp Pulse Resp BP Pulse Ox
97.5 F 100 20 102/77 97
09/02/24 11:31 09/02/24 11:31 09/02/24 11:31 09/02/24 11:31 09/02/24 11:31
Intake & Output
08/31/24 09/01/24 09/02/24 09/03/24
06:59 06:59 06:59 06:59
Intake Total 570 / 570
Output Total 175 / 175
Balance 395 / 395
Physical Exam
Physical Exam
GEN: NAD. AAOx3
LUNGS: RA. No audible wheeze
CV: SR on tele.
EXT: +3 pitting B/L LE edema to the thighs.
[2024-09-02 17:02] LABS: Glucose - Point of Care 178 mg/dl (70-99)
[2024-09-02] MEDS: COMPAZINE 5 MG IV (17:24)
--- NOTE | 2024-09-02 20:05 | PTCARENOTE ---
patient complaining of abdominal discomfort/pressure. no PRN pain medications ordered.overnight provider notified. awaiting new orders.
--- NOTE | 2024-09-02 20:30 | PTCARENOTE ---
Patient's daughter inquiring about an oncology consult, while patient is in house; moreover, daughter requesting a goals of care discussion. Provider notified. Per provider, she will put it in her sign out. This RN will communicate with oncoming,
day shift RN.
[2024-09-02] MEDS: TYLENOL 650 MG PO (20:56)
[2024-09-02] MEDS: SENOKOT-S 1 TABLET PO (20:57)
[2024-09-02] MEDS: ATIVAN 0.5 MG PO (21:36)
[2024-09-02] MEDS: LANTUS 0.15 UNITS SC (21:39)
[2024-09-02 21:41] LABS: Glucose - Point of Care 219 mg/dl (70-99)
[2024-09-03] MEDS: HEPARIN SC (00:42)
[2024-09-03 03:33] VITALS: BP 109/77
--- NOTE | 2024-09-03 03:45 | PTCARENOTE ---
patient bladder scanned for >600 ml. Straight cath for 100 ml, unable to obtain more urine--PVR 559 ml. Provider notified. This RN suggested oxybutynin for suspected bladder spasms. Order placed by provider.
[2024-09-03] MEDS: DITROPAN 5 MG PO (04:43)
[2024-09-03 05:35] LABS: Blood Urea Nitrogen 55 mg/dl (7-17); Calcium 8.4 mg/dl (8.4-10.2); Carbon Dioxide 25 mmol/L (22-30); Chloride 100 mmol/L (98-107); Estimated Creatinine Clearance 38 ml/min; Glucose 121 mg/dl (70-99); Potassium 4.0 mmol/L (3.5-5.1); Sodium 131 mmol/L (135-145); eGFR 42.35
[2024-09-03 06:00] VITALS: BMI 28.0
[2024-09-03 07:00] VITALS: BP 124/75
--- NOTE | 2024-09-03 08:56 | W.PN.HOSP.TC ---
Addendum entered and electronically signed by Carl Eddy DO 09/03/24 09:25:
Updated patient's daughter Darya on the phone, all questions answered. She is agreeable and receptive to hospice as well.
Original Note:
Today's Communication/Plan
-
Bowel regimen
Hospice consult
Assessment / Plan
Assessment / Plan
Gen-AAOx3, NAD
HEENT-NC, AT, anicteric, clear oral mm
Neck-supple
CV-reg, no M, +S1/S2
Lungs-clear B/L
Abd-soft, NT, ND
Ext-diffuse bilateral lower extremity edema up to thighs
Musculoskeletal-no cyanosis, clubbing
Skin-warm and dry
Neuro-grossly non-focal
Psych-calm, cooperative
Anasarca -primarily driven by severe lower extremity lymphedema, malignancy related. No true evidence of congestive heart failure.
Continue IV Lasix, leg elevation. Tubigrip's if she can tolerate.
Echocardiogram shows LVEF 60 to 65%, no regional wall motion abnormalities. No significant change compared to echocardiogram from June 2024.
Lower extremity ultrasound negative for DVT.
CKD 3A -monitor renal function closely on Lasix, creatinine 1.3 today.
Hyperthyroidism
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
Hyponatremia -improving, 131.
DM2 with hyperglycemia -glucose 121 this morning. Hemoglobin A1c 6.4% in May. At home she is on Lantus 18 units at bedtime, metformin 1000 mg twice daily.
- In the hospital, she is on Lantus 15 units at bedtime.
- Aspart sliding scale
- Continue metformin for now
Metastatic endometrial cancer -oncologist is located in [place].
History of breast cancer
Hyperlipidemia -simvastatin.
Severe constipation -bowel regimen ordered.
DVT prophylaxis -heparin subcu
DNR -confirmed with patient.
Dispo -Long discussion with patient today regarding goals of care. She understands she has a poor overall prognosis, she understands that her malignancy is a terminal condition. She is open to exploring hospice.
Recommend discharge to senior living with plans to initiate hospice. Not safe to live alone. She has 2 daughters, one lives in [facility] and the other lives in [place]. I left a voicemail for Darya to call me back.
Updated case management.
Anticipated Discharge: 24 - 48 hours
Subjective/Interval History
-
Date of Service: September 03, 2024
Patient seen and examined. Complaining of abdominal and chest pressure, mid back pain.
Objective Data
-
Labs:
Laboratory Results
09/03/24
04:54
Sodium 131 L
Potassium 4.0
Chloride 100
Carbon Dioxide 25
BUN 55 H
Creatinine 1.3 H
Glucose 121 H
Calcium 8.4
Vital Signs:
Vital Signs
Temp Pulse Resp BP Pulse Ox
97.0 F 88 16 109/77 95
09/03/24 03:33 09/03/24 03:33 09/03/24 03:33 09/03/24 03:33 09/03/24 03:33
I&O
09/02/24 09/03/24 09/04/24
06:59 06:59 06:59
Intake Total 570 / 570
Output Total 175 / 175 350 / 350
Balance 395 / 395 -350 / -350
Review of Systems
-
History Source: Patient
All other systems: Reviewed and negative
--- NOTE | 2024-09-03 09:44 | W.PN.CARDCBS ---
Addendum entered and electronically signed by Marco Bowling DO 09/03/24 13:35:
I saw and examined the patient.
The Transit Man's note was reviewed and I agree with the note.
Comment:
Plan:
Cont IV lasix from a palliative care perspective
Edema is more likely from low protein state associated with her metastatic disease.
Echo with preserved EF and stable valves
Hospice consult as per primary service.
Discussed with nursing
Please recall if needed
Original Note:
Today's Communication / Plan
-
Continue IV lasix for now
Creat stable.
Hospice consult per primary service.
Impression / Plan
-
PCP: Dr. Villalpando
Card: Dr. Alena Montalvo
Impression:
Admitted with multifactorial volume overload and syncope 08/31/2024
Acute HFpEF
Acute on chronic LE edema and lymphedema
Hypoalbuminemia
Syncope, likely orthostasis
Hyperthyroidism
Hyponatremia
DM 2
h/o serous endometrial cancer
Initially part of the study of carboplatin/paclitaxel Taxol +/- Keytruda therapy, then on Lenvima and Keytruda and now on Keytruda alone
Previous radiation therapy to the perihepatic and supraclavicular areas for positive lymph nodes
DM2
Inappropriate sinus tachycardia
h/o splenic artery aneurysm
h/o mesenteric venous thrombosis
Echo 06/23/2024: EF 60 to 65%, normal RV size and function, mild MR
Echo 09/01/2024: EF 60 to 65%, no WMA, normal RV size and function, mild MR
Plan:
-Presented with LE edema and weight gain. Admitted with multifactorial volume overload due to hypoalbuminemia, lymphedema, and possible acute heart failure
-Diuresing with IV lasix, however symptoms seem to be more related to lymphedema from malignancy.
-Weight down 1lb overnight, down to 173 lbs on 09/03. Creat overall stable at 1.3.
-Echo 09/01 as noted above with preserved EF and mild MR, stable compared to prior.
-Continue Tubigrips
-BP and HR stable. Continue Toprol 50mg daily.
-Hospice consulted by primary service which is reasonable.
HPI: Patient came to the ER late yesterday with increased LE edema and weight gain and was admitted with multifactorial volume overload, cardiology is now consulted. Patient was seen in the office on 07/02/2024 and that time had significant LE edema
which thought to be multifactorial including her intra-abdominal processes related to previous cancer treatment and radiation, hypoalbuminemia, lymphedema and chronic HFpEF. Patient did not appear to be in acute HF and no changes were made to her
usual diuretic regimen of Lasix 40 mg daily. Patient comes to the ER now believing that her weight is up about 40 pounds over the last couple of months. Patient denies any chest pain. Overall BLEVINS, but no specific orthopnea. Tremendous increase
in LE edema, but no evidence of DVT on U/S. Patient also reporting intermittent episodes of pain/pressure in her chest radiating up from her epigastrium into her neck, there was some thought that this may have been related to Lenvima as she also
had increased N/V. Outpatient oncologist stopped Lenvima and plan is to reassess in 6 weeks. In the meantime patient remains on her usual Keytruda every 3 week regimen. Patient also with episode of syncope x 2 described as standing from a seated
position feeling lightheaded and then near syncope. No fall or injury.
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
Subjective
Date of Service: September 03, 2024
No chest pain, but feeling weak.
Objective
Labs:
08/31/24 19:35
09/03/24 04:54
Labs
Hgb 14.1 g/dL (12.0-16.0) 08/31/24 19:35
Hct 40.5 % (37.0-47.0) 08/31/24 19:35
Plt Count 453 10^3/uL (130-400) H 08/31/24 19:35
Sodium 131 mmol/L (135-145) L 09/03/24 04:54
Potassium 4.0 mmol/L (3.5-5.1) 09/03/24 04:54
BUN 55 mg/dl (7-17) H 09/03/24 04:54
Creatinine 1.3 mg/dL (0.6-1.0) H 09/03/24 04:54
Glucose 121 mg/dl (70-99) H 09/03/24 04:54
Troponins
08/31/24
23:30
Troponin I < 0.012
Vital Signs and I&O:
Vital Signs
Temp Pulse Resp BP Pulse Ox
97.0 F 88 16 109/77 95
09/03/24 03:33 09/03/24 03:33 09/03/24 03:33 09/03/24 03:33 09/03/24 03:33
Vital Signs
Temp Pulse Resp BP Pulse Ox
97.0 F 88 16 109/77 95
09/03/24 03:33 09/03/24 03:33 09/03/24 03:33 09/03/24 03:33 09/03/24 03:33
Intake & Output
09/01/24 09/02/24 09/03/24 09/04/24
06:59 06:59 06:59 06:59
Intake Total 570 / 570
Output Total 175 / 175 350 / 350
Balance 395 / 395 -350 / -350
Physical Exam
Physical Exam
GEN: No distress, awake, alert, oriented x3
HEENT: anicteric, mmm
LUNGS: CTA b/l, no wheezes/rales
CV: Reg, S1/S2, no murmur
EXT: No clubbing or cyanosis, +3 b/l LE edema
NEURO: Gross non-focal
SKIN: Warm, dry, no rash
[2024-09-03 10:07] LABS: Glucose - Point of Care 106 mg/dl (70-99)
[2024-09-03] MEDS: GLUCOPHAGE XR EXTENDED RELEASE 1000 MG PO ×2 (10:08→16:32)
[2024-09-03] MEDS: LIPITOR 10 MG PO (10:09)
[2024-09-03] MEDS: TOPROL XL 50 MG PO (10:10)
[2024-09-03] MEDS: TAPAZOLE 5 MG PO (10:12)
[2024-09-03] MEDS: HEPARIN 5000 UNITS SC ×2 (10:13→16:32)
[2024-09-03] MEDS: NOVOLOG FLEXPEN-LOW RESISTANCE SC ×3 (10:13→16:46)
[2024-09-03] MEDS: LASIX 60 MG IV ×2 (10:14→16:36)
[2024-09-03] MEDS: DULCOLAX 10 MG RECTAL (10:14)
[2024-09-03] MEDS: MIRALAX 17 GRAMS PO (10:15)
[2024-09-03 12:38] LABS: Glucose - Point of Care 108 mg/dl (70-99)
[2024-09-03 13:35] LABS: Glucose - Point of Care 97 mg/dl (70-99)
[2024-09-03] MEDS: TYLENOL 650 MG PO (13:50)
--- NOTE | 2024-09-03 14:39 | CM ---
Per hospitalist, discussed w/ patient and daughter about patient's prognosis. Discussed hospice, patient and daughter agreeable
hospice referral placed in [facility], nurse liaison made aware
Patient lives alone, daughters are not local
Plan: Will follow, hospice will discuss w/ patient/family
[2024-09-03 15:00] VITALS: BP 111/72
--- NOTE | 2024-09-03 15:56 | HOSPNOTE ---
Spoke with daughter and discussed hospice and the philosophy. At this time daughter would like to discuss with patient and the plan would most likely be home with hospice and it will be [facility] since her home is out of our service area. The
daughter will be here tomorrow and will stay in contact with me. More information to follow.
[2024-09-03 17:58] LABS: Glucose - Point of Care 140 mg/dl (70-99)
[2024-09-03] MEDS: COMPAZINE 5 MG IV (20:22)
[2024-09-03] MEDS: ATIVAN 0.5 MG PO (20:24)
[2024-09-03] MEDS: SENOKOT-S PO (20:24)
[2024-09-03 21:21] LABS: Glucose - Point of Care 143 mg/dl (70-99)
[2024-09-03] MEDS: LANTUS 0.15 UNITS SC (22:15)
[2024-09-03] MEDS: TUMS CHEWABLE TABLET 200 MG PO (23:39)
[2024-09-03 23:45] VITALS: BP 109/72
[2024-09-04] MEDS: HEPARIN SC (01:31)
[2024-09-04] MEDS: COMPAZINE 5 MG IV ×4 (02:22→23:52)
--- NOTE | 2024-09-04 02:31 | PTCARENOTE ---
patient restless throughout the night. complaining of abdominal pressure, with nausea accompanied with anxiety. PRN IV Compazine administered. Additional dose of Ativan requested. Awaiting provider orders.
[2024-09-04] MEDS: ATIVAN 0.5 MG PO ×2 (02:35→11:27)
--- NOTE | 2024-09-04 05:07 | PTCARENOTE ---
patient with persistent nausea. provider notified. prn zofran ordered.
[2024-09-04] MEDS: ZOFRAN 4 MG IV ×3 (05:12→20:52)
--- NOTE | 2024-09-04 05:17 | PTCARENOTE ---
unable to obtain standing scale weight due to patient's nausea and weakness.
[2024-09-04 05:20] VITALS: BMI 28.0
[2024-09-04 07:55] VITALS: BP 116/77
[2024-09-04 08:14] LABS: Glucose - Point of Care 108 mg/dl (70-99)
[2024-09-04] MEDS: NOVOLOG FLEXPEN-LOW RESISTANCE SC ×3 (08:18→17:00)
[2024-09-04] MEDS: LIPITOR 10 MG PO (08:19)
[2024-09-04] MEDS: TOPROL XL 50 MG PO (08:19)
[2024-09-04] MEDS: HEPARIN 5000 UNITS SC ×3 (08:20→23:52)
[2024-09-04] MEDS: SENOKOT-S PO (08:20)
[2024-09-04] MEDS: MIRALAX 17 GRAMS PO (08:20)
[2024-09-04] MEDS: GLUCOPHAGE XR EXTENDED RELEASE 1000 MG PO (08:20)
[2024-09-04] MEDS: TAPAZOLE 5 MG PO (08:20)
[2024-09-04] MEDS: LASIX 60 MG IV ×2 (08:21→16:56)
--- NOTE | 2024-09-04 09:40 | W.PN.HOSP.TC ---
Today's Communication/Plan
-
Paracentesis
Continue antiemetics
Discharge planning
Assessment / Plan
Assessment / Plan
Gen-AAOx3, NAD
HEENT-NC, AT, anicteric, clear oral mm
Neck-supple
CV-reg, no M, +S1/S2
Lungs-clear B/L
Abd-soft, NT, ND
Ext-diffuse bilateral lower extremity edema up to thighs
Musculoskeletal-no cyanosis, clubbing
Skin-warm and dry
Neuro-grossly non-focal
Psych-calm, cooperative
Anasarca -primarily driven by severe lower extremity lymphedema, malignancy related. No true evidence of congestive heart failure.
Continue IV Lasix, leg elevation. Tubigrip's if she can tolerate.
Echocardiogram shows LVEF 60 to 65%, no regional wall motion abnormalities. No significant change compared to echocardiogram from June 2024.
Lower extremity ultrasound negative for DVT.
Continue palliative paracentesis today, consult IR. No need to send fluid.
Continue antiemetics for nausea.
CKD 3A -monitor renal function closely on Lasix, creatinine 1.3 today.
Hyperthyroidism
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
Hyponatremia -improving, 131.
DM2 with hyperglycemia -glucose 108 this morning. Hemoglobin A1c 6.4% in May. At home she is on Lantus 18 units at bedtime, metformin 1000 mg twice daily.
- In the hospital, she is on Lantus 15 units at bedtime.
- Aspart sliding scale
- Continue metformin for now
Metastatic endometrial cancer -oncologist is located in [place].
History of breast cancer
Hyperlipidemia -simvastatin.
Severe constipation -bowel regimen ordered.
DVT prophylaxis -heparin subcu
DNR -confirmed with patient.
Dispo -appropriate for hospice. Will need custodial placement to initiate hospice. Discussed with patient and family. Case management aware.
Medically stable for discharge on hospice when bed available.
Minimize medications on discharge.
Anticipated Discharge: Within 24 hours
Subjective/Interval History
-
Date of Service: September 04, 2024
Patient seen and examined. Complaining of nausea. Abdominal bloating.
Objective Data
-
Vital Signs:
Vital Signs
Temp Pulse Resp BP Pulse Ox
97.5 F 112 16 116/77 95
09/04/24 07:55 09/04/24 07:55 09/04/24 07:55 09/04/24 07:55 09/04/24 07:55
I&O
09/03/24 09/04/24 09/05/24
06:59 06:59 06:59
Intake Total 420 / 420
Output Total 350 / 350 20 / 20
Balance -350 / -350 400 / 400
Review of Systems
-
History Source: Patient
All other systems: Reviewed and negative
--- NOTE | 2024-09-04 09:55 | CM ---
Addendum entered by Justa Hermosillo 09/04/24 17:47:
IMM reviewed verbally with the daughter Darya via phone and copy provided in patient room.
Darya saucedo of transport time.
Addendum entered by Justa Hermosillo 09/04/24 17:40:
Patient for transfer to [facility] tomorrow at 1 pm, private pay.
[facility] to follow.
Erasto from [facility] updated re transport time 1 pm.
MD aware OOH DNR needs to be signed.
Transportation forms completed and on chart.
[facility] tomorrow 1 PM
[facility]
report#[phone]
fax# [phone]
Addendum entered by Justa Hermosillo 09/04/24 13:46:
Referral placed to [facility] [place] and [facility].
Addendum entered by Justa Hermosillo 09/04/24 12:55:
Erasto from [facility] spoke with daughter, explained costs of facility for private pay approx $570 per day for private room, $490 for semi private. Daughter unsure and would like to review other facilities. CM provided options list from
[email or web address]. CM explained we will need to make a decision as patient does not need to be here for hospice services. Went over private care givers and costs. Would like [facility] hospice but daughter does not want to make decision without mother
and sister input. Per Darya her mother is not having a good day today and doesn't want to upset her more.
Plan: hospice, home vs facility, family still unsure of where they want services provided.
Addendum entered by Justa Hermosillo 09/04/24 11:25:
Spoke with daughter Darya, she is interested in inpatient at [facility] and [facility] hospice. Erasto from [facility] will reach out to daughter to discuss.
outpatient DNR form on chart to be signed.
Original Note:
Spoke with director of home care hospice re possible [facility].
TC to daughter Darya and she is interested in [facility].
Spoke with Erasto from [facility], CM needs to enter the referral under SNF for some reason. Referral entered in [facility].
Daughter here in room will speak in person.
[2024-09-04 10:30] VITALS: BP 103/78; BP_SYST 95
--- NOTE | 2024-09-04 10:57 | PTOTSP ---
CHART REVIEWED AND SPOKE WITH RN AND CASE MANAGEMENT. PATIENT OFF FLOOR CURRENTLY FOR PALLIATIVE PARACENTESIS AND THEN IS FOR DISCHARGE TO HOSPICE TOMORROW. PER CASE MANAGEMENT, CAN DISCHARGE FROM SKILLED THERAPY AT THIS TIME. WILL DISCHARGE FROM
P.T. SERVICES.
[2024-09-04 11:17] VITALS: BP 107/73
[2024-09-04] MEDS: TYLENOL 650 MG PO ×2 (11:28→20:52)
[2024-09-04 11:29] LABS: Glucose - Point of Care 104 mg/dl (70-99)
[2024-09-04 11:46] LABS: Body Fluid Second Tech CF
[2024-09-04] MEDS: FLUSH (NSS) 1 FLUSH IV ×2 (12:56→17:03)
[2024-09-04 15:04] LABS: Glucose - Point of Care 120 mg/dl (70-99)
--- NOTE | 2024-09-04 15:17 | PTCARENOTE ---
Pt was being transferred back to bed from the bedside commode. PCT yelled out for help, pt seemed to be having a vagal episode. Pt transferred back into bed. Pt more responsive, able to answer questions but lethargic. Blood glucose 120. BP 126/81
and HR 103. MD made aware.
[2024-09-04 15:58] VITALS: BP 126/81
--- NOTE | 2024-09-04 16:26 | PTCARENOTE ---
Pt setting off bed alarm. This RN found patient on bedside commode. This RN assisted pt back into bed. Pt having another episode of decreased mental status. Pt starring blankly with minimal response. Pt more arousable but lethargic. notified,
will continue with current plan.
[2024-09-04 16:46] LABS: Glucose - Point of Care 109 mg/dl (70-99)
[2024-09-04] MEDS: GLUCOPHAGE XR EXTENDED RELEASE PO (16:59)
[2024-09-04] MEDS: MORPHINE SULFATE 1 MG IV (20:51)
[2024-09-04] MEDS: SENOKOT-S 1 TABLET PO (20:53)
[2024-09-04 22:54] LABS: Glucose - Point of Care 96 mg/dl (70-99)
[2024-09-04] MEDS: LANTUS 0.15 UNITS SC (23:03)
[2024-09-04] MEDS: MORPHINE SULFATE 2 MG IV (23:52)
[2024-09-04 23:54] VITALS: BP 115/70
[2024-09-05] MEDS: ZOFRAN 4 MG IV ×2 (03:12→11:41)
[2024-09-05] MEDS: MORPHINE SULFATE 1 MG IV ×2 (03:12→06:01)
[2024-09-05 05:51] VITALS: BMI 26.3
[2024-09-05] MEDS: COMPAZINE 5 MG IV (06:01)
--- NOTE | 2024-09-05 06:30 | PTCARENOTE ---
Patient was c/o abdominal pain at start of shift. Plan is for patient to be discharged to [facility] for hospice. No comfort measures were available. Patient and daughter at bedside were requesting comfort care. RN notified TICKER WIRER Selina Recinos. One time
dose of 1 mg morphine ordered. Approx three hours later, patient c/o abdominal pain again. Reviewed assessment with TICKER WIRER. Patient ended up having a brown emesis episode, about 100 cc. TICKER WIRER came to bedside to assess. Patient had distention, specifically
on the left side, very firm to touch. TICKER WIRER discussed the possibility of getting an xray to verify an ileus vs obstruction. Ultimately it was decided to manage symptoms since the N/V wasn't new (patient had 3x emesis episodes during dayshift, bile
color) and the patient is scheduled for transport today. RN administered PRN zofran/compazine and pain med as needed throughout shift. At 0600, patient had a second brown emesis, approx 100 cc. PRN med was given and patient was monitored.
[2024-09-05] MEDS: NOVOLOG FLEXPEN-LOW RESISTANCE SC ×2 (07:20→11:52)
[2024-09-05 07:55] VITALS: BP 110/67
[2024-09-05] MEDS: GLUCOPHAGE XR EXTENDED RELEASE 1000 MG PO (09:00)
[2024-09-05] MEDS: LIPITOR 10 MG PO (09:02)
[2024-09-05] MEDS: SENOKOT-S 1 TABLET PO (09:02)
[2024-09-05] MEDS: HEPARIN 5000 UNITS SC (09:04)
[2024-09-05] MEDS: TAPAZOLE 5 MG PO (09:04)
[2024-09-05] MEDS: LASIX 60 MG IV (09:06)
[2024-09-05] MEDS: MIRALAX 17 GRAMS PO (09:07)
[2024-09-05] MEDS: TOPROL XL PO (09:51)
--- NOTE | 2024-09-05 10:43 | W.PN.HOSP.TC ---
Today's Communication/Plan
-
Discharge
Assessment / Plan
Assessment / Plan
78-year-old with metastatic endometrial carcinoma admitted for anasarca and failure to thrive.
CVS: S1-S2 normal
Chest: CTA B/L
Abdomen: Soft, BS present.
Extremities: B/L LE edema
# Anasarca primarily referred by severe lower extremity lymphedema malignancy related
Continue IV Lasix, leg elevation and Tubigrip's if patient can tolerate
Echo with EF of 60 to 65% with no regional WMA. No changes since June 2024
Ultrasound negative for DVT
Palliative paracentesis done on 09/04/2024 by IR
# CKD stage III
# Hyperthyroidism-continue methimazole
# Hyponatremia-likely due to malignancy
# Diabetes type 2-hemoglobin A1c 6.4 in May
Patient was on Lantus 18 units at bedtime, metformin 1000 mg twice daily as outpatient
Change to Lantus 14 units, sliding scale, metformin
# Metastatic endometrial carcinoma follows with [facility]
# Hypertension-continue metoprolol
# Hyperlipidemia-continue statin
# Severe constipation-continue bowel regimen
# History of breast cancer
# DVT prophylaxis-subcutaneous heparin
# DNR
Patient is for hospice
D/W Case management and RN
Time spent over 30 min
Part of this note was created using voice recognition system. Occasional wrong word or��sound alike� substitutions may have inadvertently occurred due to the inherent limitations of voice recognition software. If noted kindly bring it to my
attention for correction.
Anticipated Discharge: Today
Subjective/Interval History
-
Date of Service: September 05, 2024
Objective Data
-
Vital Signs:
Vital Signs
Temp Pulse Resp BP Pulse Ox
97.5 F 105 16 104/70 97
09/05/24 07:55 09/05/24 09:51 09/05/24 07:55 07/26/25 09:51 09/05/24 07:55
I&O
09/04/24 09/05/24 09/06/24
06:59 06:59 06:59
Intake Total 420 / 420 480 / 480
Output Total 235 / 235
Balance 400 / 400 245 / 245
--- NOTE | 2024-09-05 10:44 | W.DS.TRANS ---
Addendum entered and electronically signed by Brad Schuler MD 09/05/24 14:12:
Dictation- [id number]
Original Note:
DC Summary - [facility]
-
Discharge Instructions:
Discharge Diagnosis/Procedures Anasarca, Metastatic endometrial cancer, CKD 3a,
Hyponatremia, Diabetes, Hyperlipidemia,
Constipation, DNR status
Diet Regular
Activity With assistance
Driving Restrictions No driving
Bathing Restrictions None
Other Services Hospice
Instructions:
Stand-Alone Forms:
Changes to Home Medications: Yes
Discharge Medications:
DC Medications w/original date entered in [employer]
methimazole 5 mg tablet 5 mg PO DAILY Thyroid 11/14/14
acetaminophen 325 mg tablet 650 mg (2 x 325 mg) PO Q4HPRN PRN mild pain/GARSIA/temp>100.5 #0 tabs 09/04/24
lorazepam 0.5 mg tablet 0.5 mg PO Q6HPRN PRN anxiety #6 tabs 09/04/24
polyethylene glycol 3350 17 gram oral powder packet 17 g PO DAILY #0 ea 09/04/24
sennosides 8.6 mg-docusate sodium 50 mg tablet 1 tab PO BID #0 tabs 09/04/24
morphine concentrate 10 mg/0.5 mL oral syringe (FOR ORAL USE ONLY) 5 mg (0.25 mL) PO Q6H PRN severe pain or SOB #10 ea 09/05/24
sennosides 8.6 mg capsule (senna) 8.6 mg PO BID Constipation #60 caps 09/05/24
Home Medication Changes
new
Morphine and Ativan
Pending Results: No
[2024-09-05 11:39] LABS: Glucose - Point of Care 77 mg/dl (70-99)
== END 2024-09-05 13:28 | disposition hospice, inpatient (51) | DRG 754 ==
LOC: 4 WEST ACU 00:27
PROVIDERS: Emergency Medicine; Hospitalist; Physician Assistant; Radiology Vascular & Interventional Radiology; ADMITTING PHYSICIAN Internal Medicine; ATTENDING PHYSICIAN Hospitalist; EMERGENCY PHYSICIAN Emergency Medicine; FAMILY PHYSICIAN Family Medicine; OTHER PHYSICIAN Internal Medicine Interventional Cardiology
PROC: 0W9G3ZZ Drainage of Peritoneal Cavity, Percutaneous Approach (ICD-10-PCS; 2024-09-04)
DX: C54.1 Malignant neoplasm of endometrium (principal); I50.33 Acute on chronic diastolic (congestive) heart failure; I13.0 Hypertensive heart and chronic kidney disease with heart failure and stage 1 through stage 4 chronic kidney disease, or unspecified chronic kidney disease; E87.1 Hypo-osmolality and hyponatremia; N18.31 Chronic kidney disease, stage 3a; E11.22 Type 2 diabetes mellitus with diabetic chronic kidney disease; E88.A Wasting disease (syndrome) due to underlying condition; Z68.26 Body mass index [BMI] 26.0-26.9, adult; K59.00 Constipation, unspecified; Z66 Do not resuscitate; E78.00 Pure hypercholesterolemia, unspecified; E03.9 Hypothyroidism, unspecified; Z85.3 Personal history of malignant neoplasm of breast; E88.09 Other disorders of plasma-protein metabolism, not elsewhere classified; F41.9 Anxiety disorder, unspecified; I89.0 Lymphedema, not elsewhere classified; R54 Age-related physical debility; Z79.4 Long term (current) use of insulin; Z79.84 Long term (current) use of oral hypoglycemic drugs; Z79.899 Other long term (current) drug therapy; Z87.442 Personal history of urinary calculi; Z90.49 Acquired absence of other specified parts of digestive tract; Z90.710 Acquired absence of both cervix and uterus; Z91.048 Other nonmedicinal substance allergy status; Z92.3 Personal history of irradiation
CPT/HCPCS: 49083; 71046; 72110; 80048; 80053; 80061; 82962; 83735; 83880; 83935; 84100; 84300; 84439; 84443; 84484; 85025; 89051; 93005; 93308; 93321; 93325; 93970; 97163